=== PATIENT | male | born 1980 | race American Indian/Alaskan Native ===

== ENCOUNTER 2019-10-31 11:57 | Emergency (ER) | payer OTHER ==
[2019-10-31] MEDS ORDERED: IBUPROFEN 600 MG TAB PO ONE (14:14)
--- NOTE | 2019-10-31 14:14 | Emergency Department Report ---
- General Chief Complaint: Upper Respiratory Infection Stated Complaint: FLU SYM Time Seen by Provider: 10/31/19 14:08 Source: patient Mode of arrival: Ambulatory Limitations: No Limitations - History of Present Illness Initial Comments: pt is a 39 yo male who presents to the ED with c/o flu like symptoms that began yesterday. he has associated dry coughing, sneezing, generalized body aches, fever, diarrhea, nausea. he denies any vomiting, no ear pain, no sore throat. +sick contact with flu. PMHx none. no allergies to meds. - Related Data Previous Rx's Medication Instructions Recorded Last Taken Type Oseltamivir [Tamiflu] 75 mg PO BID 5 Days #10 cap 10/31/19 Unknown Rx Allergies Allergy/AdvReac Type Severity Reaction Status Date / Time No Known Allergies Allergy Unverified 10/31/19 14:31 ED Review of Systems ROS: Stated complaint: FLU SYM Other details as noted in HPI Comment: All other systems reviewed and negative ED Past Medical Hx - Past Medical History Previous Medical History?: No - Surgical History Past Surgical History?: No - Medications Home Medications: Home Medications Medication Instructions Recorded Confirmed Last Taken Type Oseltamivir [Tamiflu] 75 mg PO BID 5 Days #10 cap 10/31/19 Unknown Rx ED Physical Exam - General Limitations: No Limitations General appearance: alert, in no apparent distress - Head Head exam: Present: atraumatic, normocephalic - Eye Eye exam: Present: normal appearance - ENT ENT exam: Present: normal orophraynx, mucous membranes moist, TM's normal bilaterally, normal external ear exam - Respiratory Respiratory exam: Present: normal lung sounds bilaterally. Absent: respiratory distress, wheezes, rales, rhonchi, stridor, chest wall tenderness, accessory muscle use, decreased breath sounds, prolonged expiratory - Cardiovascular Cardiovascular Exam: Present: regular rate, normal rhythm, normal heart sounds. Absent: systolic murmur, diastolic murmur, rubs, gallop - Neurological Exam Neurological exam: Present: alert, oriented X3 - Psychiatric Psychiatric exam: Present: normal affect, normal mood - Skin Skin exam: Present: warm, dry, intact ED Course Vital Signs 10/31/19 10/31/19 10/31/19 14:16 14:20 14:32 Temperature 101.6 F H 100.9 F H Pulse Rate 88 86 Respiratory 18 20 18 Rate Blood Pressure 159/101 Blood Pressure 157/95 [Right] O2 Sat by Pulse 98 97 Oximetry 10/31/19 10/31/19 14:33 14:34 Temperature Pulse Rate Respiratory 18 18 Rate Blood Pressure Blood Pressure [Right] O2 Sat by Pulse Oximetry ED Medical Decision Making - Medical Decision Making pt is a 39 yo male who presents to the ED with c/o flu like symptoms that began yesterday. he has associated dry coughing, sneezing, generalized body aches, fe bk, diarrhea, nausea. he denies any vomiting, no ear pain, no sore throat. +sick contact with flu. PMHx none. no allergies to meds. vitals with elevated temp, pt given ibuprofen and tylenol. Patient has clinical signs and symptoms of influenza. breath sounds are clear bilaterally, no clinical signs/sx of PNA, tolerating PO intake, no clinical signs of dehydration. please take medication as prescribed. may alternate tylenol then ibuprofen every 6 hours as needed for fever. may take mucinex or theraflu over the counter. increase your fluid intake over the next several days. get plenty of rest. follow up with a primary care doctor. return to the emergency room for any new or worsening symptoms. - Differential Diagnosis influenza, URI, PNA, viral syndrome, otitis, pharyngitis Critical care attestation.: If time is entered above; I have spent that time in minutes in the direct care of this critically ill patient, excluding procedure time. ED Disposition Clinical Impression: Influenza Disposition: [id number] TO HOME OR SELFCARE Is pt being admited?: No Does the pt Need Aspirin: No Condition: Stable Instructions: Influenza (ED) Additional Instructions: please take medication as prescribed. may alternate tylenol then ibuprofen every 6 hours as needed for fever. may take mucinex or theraflu over the counter. increase your fluid intake over the next several days. get plenty of rest. follow up with a primary care doctor. return to the emergency room for any new or worsening symptoms. Prescriptions: Oseltamivir [Tamiflu] 75 mg PO BID 5 Days #10 cap Referrals: EDGAR ELIZONDO MD [Staff Physician] - 3-5 Days [facility] [Provider Group] - 3-5 Days Time of Disposition: 14:15 Print Language: IRISH
[2019-10-31] MEDS: ACETAMINOPHEN 325 MG TAB PO ONE ×2 (14:32→14:33)
[2019-10-31 14:41] VITALS: BP 159/101
== END 2019-10-31 14:41 | disposition home or self-care (01) ==
LOC: ED 11:57
DX: J11.1 Influenza due to unidentified influenza virus with other respiratory manifestations (principal)
CPT/HCPCS: 99282

== ENCOUNTER 2019-11-19 17:47 | Emergency (ER) | payer OTHER | END 2019-11-19 18:00 | disposition left against medical advice (07) | LOC: ED 17:47 | DX: R07.89 Other chest pain (principal); Z53.21 Procedure and treatment not carried out due to patient leaving prior to being seen by health care provider ==